=== PATIENT | female | born 1945 | race Caucasian/White ===

== ENCOUNTER 2019-06-13 13:04 | Emergency (ER) | payer MEDICARE ==
[2019-06-13] MEDS ORDERED: NS 0.9% 1000 ML** 1,000 ML IV ONE (14:25)
[2019-06-13] MEDS ORDERED: Meclizine TAB* 12.5 MG PO ONE (14:25)
--- NOTE | 2019-06-13 14:28 | ED ---
Dizziness - HPI Summary HPI Summary: The patient is 73 year old female presenting to [facility] [place] with a chief complaint of a fall yesterday after she became dizzy and off-balance. She reports that she was walking towards the refrigerator and went to open it when she became dizzy with blurred vision and ended up sliding to the floor. She denies any head injury, loss of consciousness, shortness of breath, chest pain, or headache with the event. She needed assistance off of the floor from her brother who lives at home with her. She is not currently experiencing any dizziness. 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 Past medical history significant for borderline hyperlipidemia , tubal ligation. Nonsmoker, no alcohol use, no substance use. Medications reviewed. Allergies noted. - History Of Current Complaint Chief Complaint: EDDizziness Stated Complaint: DIZZYNESS/FALL/HIGH BLOOD SUGAR PER PT Time Seen by Provider: 06/13/19 14:12 Hx Obtained From: Patient Onset/Duration: Resolved Timing: Minutes Severity Initially: Moderate Severity Currently: None Character: Dizzy Aggravating Factor(s): Nothing Alleviating Factor(s): Other - spontaneous Associated Signs And Symptoms: Positive: Visual Changes - blurred vision. Negative: Chest Pain, SOB, Other: - head injury, loss of consciousness, headache - Allergies/Home Medications Allergies/Adverse Reactions: Allergies Allergy/AdvReac Type Severity Reaction Status Date / Time No Known Allergies Allergy Verified 06/13/19 15:18 Home Medications: Home Medications Bisacodyl EC TAB* [Dulcolax EC TAB*] 5 mg PO DAILY PRN 06/13/19 [History Confirmed 06/13/19] Calcium Carbonate [Calcium] 500 mg PO DAILY 06/13/19 [History Confirmed 06/13/19 ] Multivitamins/Minerals TAB* [Theragran/minerals TAB*] 1 tab PO DAILY 06/13/19 [ History Confirmed 06/13/19] PMH/Surg Hx/FS Hx/Imm Hx Endocrine/Hematology History: Denies: Hx Diabetes Cardiovascular History: Reports: Hx Hypercholesterolemia - borderline Denies: Hx Hypertension Respiratory History: Denies: Hx Chronic Obstructive Pulmonary Disease (COPD) Psychiatric History: Reports: Hx Anxiety - Surgical History Surgical History: Yes Surgery Procedure, Year, and Place: tubal ligation Infectious Disease History: No Infectious Disease History: Denies: Traveled Outside the [place] in Last 30 Days - Family History Known Family History: Negative: Hypertension, Diabetes - Social History Alcohol Use: None Hx Substance Use: No Substance Use Type: Reports: None Hx Tobacco Use: No Smoking Status (MU): Never Smoked Tobacco Review of Systems Positive: Blurred Vision Negative: Chest Pain Negative: Shortness Of Breath Neurological: Other - dizziness, off-balance sensation; Negative: head injury, loss of consciousness Negative: Headache All Other Systems Reviewed And Are Negative: Yes Physical Exam - Summary Physical Exam Summary: VITAL SIGNS: Reviewed. GENERAL: Patient is a well-developed and nourished female who is lying comfortable in the stretcher. Patient is not in any acute respiratory distress. HEAD AND FACE: No signs of trauma. No ecchymosis, hematomas or skull depressions. No sinus tenderness.. EYES: PERRLA, EOMI x 2, No injected conjunctiva, no nystagmus. EARS: Hearing grossly intact. Ear canals and tympanic membranes are within normal limits. MOUTH: Oropharynx within normal limits. NECK: Supple, trachea is midline, no adenopathy, no JVD, no carotid bruit, no c- spine tenderness, neck with full ROM. CHEST: Symmetric, no tenderness at palpation. LUNGS: Clear to auscultation bilaterally. No wheezing or crackles. CVS: Regular rate and rhythm, S1 and S2 present, no murmurs or gallops appreciated. ABDOMEN: Soft, non-tender. No signs of distention. No rebound, no guarding, and no masses palpated. Bowel sounds are normal. EXTREMITIES: FROM in all major joints, no edema, no cyanosis or clubbing. NEURO: Alert and oriented x 3. No acute neurological deficits. Speech is normal and follows commands. SKIN: Dry and warm. Triage Information Reviewed: Yes Vital Signs On Initial Exam: Initial Vitals Temp Pulse Resp BP Pulse Ox 97.7 F 133 18 157/103 95 06/13/19 13:10 06/13/19 13:10 06/13/19 13:10 06/13/19 13:10 06/13/19 13:10 Vital Signs Reviewed: Yes - Isaias Coma Scale Best Eye Response: 4 - Spontaneous Best Motor Response: 6 - Obeys Commands Best Verbal Response: 5 - Oriented Coma Scale Total: 15 Procedures - Sedation Patient Received Moderate/Deep Sedation with Procedure: No Diagnostics - Vital Signs Vital Signs Temp Pulse Resp BP Pulse Ox 06/13/19 13:10 97.7 F 133 18 157/103 95 - Laboratory Result Diagrams: 06/13/19 14:34 06/13/19 14:34 Lab Statement: Any lab studies that have been ordered have been reviewed, and results considered in the medical decision making process. - Radiology Chest X-Ray Radiology Interpretation Completed By: Radiologist Summary of Radiographic Findings: Impression: No active cardiopulmonary disease is noted. ED physician has reviewed this report. - CT Brain CT CT Interpretation Completed By: Radiologist Summary of CT Findings: Impression: No acute intracranial pathology. ED physician has reviewed this report. - EKG 1434 Cardiac Rate: Tachycardia - 130 bpm EKG Rhythm: Sinus Tachycardia Summary of EKG Findings: An EKG at 1434 reveals sinus tachycardia at 130 bpm. Q waves in II, aVF, and V1-V4. No ST elevations. ED physician has reviewed and interpreted this EKG. Re-Evaluation - Re-Evaluation First Eval Re-Evaluation Time: 17:30 Comment: We discussed results and plan for discharge. She is able to ambulate without any dizziness. Dizzy Course/Dx - Course Assessment/Plan: The patient is a 73 year old female presenting to [facility] [place] emergency department with a chief complaint of a fall yesterday after she became dizzy and off-balance. She reports that she was walking towards the refrigerator and went to open it when she became dizzy with blurred vision and ended up sliding to the floor. She denies any head injury, loss of consciousness , shortness of breath, chest pain, or headache with the event. She needed assistance off of the floor from her brother who lives at home with her. She is not currently experiencing any dizziness. Blood work without any significant abnormality except for glucose of 163 and alkaline phosphatase of 149. Head CT impression: No acute intracranial pathology. EKG shows sinus tachycardia. Chest x-ray impression: No active cardiopulmonary disease. In the ED course, the patient was given Meclizine and IV fluids. At this point, the patient is completely asymptomatic. I believe that her symptoms are secondary to vertigo. The patient will be given a prescription for Meclizine. Exam prior to discharge : the patient is ambulating on her own without any ataxia or any dysfunction. She is hemodynamically stable alert and oriented 3. - Diagnoses Differential Diagnosis/HQI/PQRI: Benign Paroxysmal Positional Vertigo, Dysrhythmia, Meniere's Disease Provider Diagnoses: Vertigo Discharge ED - Sign-Out/Discharge Documenting (check all that apply): Patient Departure - Patient will be discharged home. - Discharge Plan Condition: Stable Disposition: HOME Prescriptions: Meclizine TAB* [Antivert 12.5 TAB*] 25 mg PO TID #30 tab Patient Education Materials: Vertigo (ED) Referrals[facility] [Outside] - 3 Days [facility] [place] [facility] REFERRAL [Outside] - 3 Days Additional Instructions: Please take your medications as prescribed. Follow up with your primary care provider in 2-3 days. Return to the emergency department for any new or worsening symptoms. - Billing Disposition and Condition Condition: STABLE Disposition: Home - Attestation Statements Document Initiated by Travis: Yes Documenting Scribe: Doretha Alegria Provider For Whom Travis is Documenting (Include Credential): Dr. Max Casas MD Scribe Attestation: Doretha Virk scribed for Dr. Max Casas MD on 06/13/19 at 2156. Scribe Documentation Reviewed: Yes Provider Attestation: The documentation as recorded by the Doretha estrada accurately reflects the service I personally performed and the decisions made by me, Dr. Max Casas MD Status of Scrdelma Document: Viewed
[2019-06-13 15:00] LABS: ABS Lymphocytes 1.7 10^3/ul (1.0-4.8); ABS Monocytes 0.3 10^3/ul (0-0.8); ABS Neutrophils 2.7 10^3/ul (1.5-7.7); Eosinophil % 0.8 %; Hematocrit 44 % (35-47); Hemoglobin 15.1 g/dL (12.0-16.0); Mean Corpuscular HGB Conc 35 g/dL (31-36); Mean Corpuscular Hemoglobin 30 pg (27-31); Mean Corpuscular Volume 88 fL (80-97); Mean Platelet Volume 8.6 fL (7.4-10.4); Nucleated Red Blood Cells % 0.1; Platelet Count 204 10^3/uL (150-450); Red Blood Count 4.97 10^6 /uL (3.70-4.87); Red Cell Distribution Width 13 % (10-15); White Blood Count 4.8 10^3/uL (3.5-10.8)
[2019-06-13 15:20] LABS: ALT 15 U/L (7-52); AST 16 U/L (13-39); Albumin 4.1 g/dL (3.2-5.2); Albumin/Globulin Ratio 1.5 (1-3); Alcohol < 10 mg/dL (<10); Alkaline Phosphatase 149 U/L (34-104); Anion Gap 7 mmol/L (2-11); BUN/Creatinine Ratio 26.2 (8-20); Blood Urea Nitrogen 16 mg/dL (6-24); C Reactive Protein 3.97 mg/L (<8.01); CO2 Carbon Dioxide 25 mmol/L (22-32); Calcium 9.4 mg/dL (8.6-10.3); Chloride 105 mmol/L (101-111); EGFR African American 116.7 (>60); EGFR Non-African American 96.4 (>60); Globulin 2.7 g/dL (2-4); Glucose 163 mg/dL (70-100); Magnesium 1.9 mg/dL (1.9-2.7); Potassium 3.8 mmol/L (3.5-5.0); Sodium 137 mmol/L (135-145); Total Protein 6.8 g/dL (6.4-8.9)
[2019-06-13 15:32] LABS: TSH (Thyroid Stimulating Horm) 1.45 mcIU/mL (0.34-5.60)
[2019-06-13 18:12] VITALS: BP 151/90
== END 2019-06-13 18:11 | disposition home or self-care (01) ==
LOC: ED 13:04
DX: R42 Dizziness and giddiness (principal); F41.9 Anxiety disorder, unspecified
CPT/HCPCS: 36415; 70450; 71046; 80053; 80320; 83605; 83735; 83880; 84443; 84484; 85025; 86140; 93005; 96360; 96361; 99282; A9270-GY; G0480